=== PATIENT | male | born 2000 | race Caucasian/White ===

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

== ENCOUNTER 2022-08-11 21:12 | Outpatient (CLI) | payer OTHER | END 2022-08-11 23:00 | disposition home or self-care (01) | LOC: LAB 21:12 | PROVIDERS: ATTEND Obstetrics & Gynecology | DX: Z20.828 Contact with and (suspected) exposure to other viral communicable diseases (principal); Z20.818 Contact with and (suspected) exposure to other bacterial communicable diseases ==

== ENCOUNTER 2024-10-17 18:30 | Emergency (ER) | payer OTHER ==
[~2024-10-17] VITALS: Ht 193 cm; Wt 147.4 kg
[2024-10-17] MEDS ORDERED: KETOROLAC TROMETHAMINE 30 MG VIAL IV ONE (19:45)
[2024-10-17] MEDS ORDERED: ENALAPRILAT DIHYDRATE 2.5 MG/2 ML VIAL IV ONE (19:45)
[2024-10-17] MEDS ORDERED: ORPHENADRINE CITRATE 30 MG/ML AMPUL IM ONE (19:45)
[2024-10-17] MEDS ORDERED: DICLOFENAC SODI75 MG PO (21:17)
[2024-10-17] MEDS ORDERED: NORFLEX100MG PO (21:17)
[2024-10-17] MEDS ORDERED: COZAAR50 MG PO (21:17)
== END 2024-10-17 21:34 | disposition home or self-care (01) ==
LOC: ER 18:30
DX: M54.2 Cervicalgia (principal); M54.50 Low back pain, unspecified; I10 Essential (primary) hypertension; V49.9XXA Car occupant (driver) (passenger) injured in unspecified traffic accident, initial encounter; Y93.89 Activity, other specified; Y92.413 State road as the place of occurrence of the external cause